=== PATIENT | female | born 1980 | race Caucasian/White ===

== ENCOUNTER 2017-05-16 10:09 | Emergency (ER) | payer OTHER ==
[~2017-05-16] VITALS: Ht 167.6 cm; Wt 100.0 kg
[2017-05-16 12:24] VITALS: BP 120/74
== END 2017-05-16 12:24 | disposition home or self-care (01) ==
LOC: ED 10:09
DX: M54.2 Cervicalgia (principal)
CPT/HCPCS: J1885

== ENCOUNTER 2018-01-26 14:10 | Emergency (ER) | payer OTHER ==
[~2018-01-26] VITALS: Ht 167.6 cm; Wt 97.1 kg
[2018-01-26 14:14] VITALS: BP 160/112; Ht 167.6 cm; Wt 97.1 kg
== END 2018-01-26 15:10 | disposition left against medical advice (07) ==
LOC: ED 14:10
DX: Z53.21 Procedure and treatment not carried out due to patient leaving prior to being seen by health care provider (principal)

== ENCOUNTER 2018-04-25 13:41 | Emergency (ER) | payer OTHER ==
[~2018-04-25] VITALS: Ht 167.6 cm; Wt 93.9 kg
[2018-04-25 14:04] VITALS: BP 130/91; Ht 167.6 cm; Wt 93.9 kg
== END 2018-04-25 14:54 | disposition home or self-care (01) ==
LOC: ED 13:41
DX: R51 Headache (principal); G82.20 Paraplegia, unspecified
CPT/HCPCS: J3030

== ENCOUNTER 2018-10-13 07:25 | Emergency (ER) | payer OTHER ==
[~2018-10-13] VITALS: Ht 167.6 cm; Wt 95.3 kg
[2018-10-13 07:34] VITALS: BP 127/79; Ht 167.6 cm; Wt 95.3 kg
== END 2018-10-13 08:55 | disposition home or self-care (01) ==
LOC: ED 07:25
DX: K52.9 Noninfective gastroenteritis and colitis, unspecified (principal); F41.9 Anxiety disorder, unspecified
CPT/HCPCS: Q0162

== ENCOUNTER 2019-02-10 10:29 | Emergency (ER) | payer OTHER ==
[~2019-02-10] VITALS: Ht 167.6 cm; Wt 97.6 kg
[2019-02-10 10:36] VITALS: Ht 167.6 cm; Wt 97.6 kg
[2019-02-10 11:06] VITALS: BP 134/97
== END 2019-02-10 11:06 | disposition home or self-care (01) ==
LOC: ED 10:29
DX: M25.512 Pain in left shoulder (principal); R20.2 Paresthesia of skin; F41.9 Anxiety disorder, unspecified

== ENCOUNTER 2019-08-18 20:58 | Emergency (ER) | payer OTHER ==
[~2019-08-18] VITALS: Ht 167.6 cm; Wt 98.4 kg
[2019-08-18 21:01] VITALS: Ht 167.6 cm; Wt 98.4 kg
[2019-08-18 22:19] VITALS: BP 147/104
== END 2019-08-18 22:19 | disposition home or self-care (01) ==
LOC: ED 20:58
DX: R30.0 Dysuria (principal); F41.9 Anxiety disorder, unspecified

== ENCOUNTER 2019-12-13 07:36 | Emergency (ER) | payer OTHER ==
[2019-12-13 08:08] LABS: BASOPHIL % 0.9 % (0-2); PLATELET COUNT 248 x10^3mcL (130-400); RED CELL DISTRIBUTION WIDTH 12.6 % (11.5-14.5)
[2019-12-13 08:12] LABS: CALCIUM 8.6 mg/dL (8.5-10.1); CARBON DIOXIDE 23.1 mmol/L (21-32); CHLORIDE SERUM 107 mmol/L (98-107); CREATININE SERUM 0.7 mg/dL (0.6-1.0); GFR1 > 60 mL/min; GLUCOSE SERUM 105 mg/dL (74-106); POTASSIUM SERUM 4.2 mmol/L (3.5-5.1); SODIUM SERUM 140 mmol/L (136-145)
[2019-12-13 08:20] LABS: ALBUMIN 3.4 g/dL (3.4-5.0); ALKALINE PHOSPHATASE 81 U/L (46-116); ALT/SGPT 25 U/L (14-59); AST/SGOT 13 U/L (15-37); BILIRUBIN TOTAL 0.3 mg/dL (0.20-1.00)
[2019-12-13 08:57] VITALS: BP 113/76
== END 2019-12-13 09:02 | disposition home or self-care (01) ==
LOC: ED 07:36
PROVIDERS: Emergency Medicine
DX: R07.89 Other chest pain (principal)
CPT/HCPCS: 36415

== ENCOUNTER 2020-03-03 11:47 | Emergency (ER) | payer OTHER ==
[~2020-03-03] VITALS: Ht 167.6 cm; Wt 97.1 kg
[2020-03-03 11:55] VITALS: Ht 167.6 cm; Wt 97.1 kg
[2020-03-03 12:49] LABS: CALCIUM 8.7 mg/dL (8.5-10.1); CARBON DIOXIDE 24.1 mmol/L (21-32); CHLORIDE SERUM 102 mmol/L (98-107); CREATININE SERUM 0.7 mg/dL (0.6-1.0); GFR1 > 60 mL/min; GLUCOSE SERUM 93 mg/dL (74-106); POTASSIUM SERUM 3.8 mmol/L (3.5-5.1); SODIUM SERUM 138 mmol/L (136-145)
[2020-03-03 12:53] LABS: ALBUMIN 3.6 g/dL (3.4-5.0); ALKALINE PHOSPHATASE 54 U/L (46-116); ALT/SGPT 24 U/L (14-59); AMYLASE 47 U/L (25-115); AST/SGOT 15 U/L (15-37); BILIRUBIN TOTAL 0.4 mg/dL (0.20-1.00); LIPASE 127 IU/L (73-393)
[2020-03-03 12:58] LABS: BASOPHIL % 1.3 % (0-2); PLATELET COUNT 225 x10^3mcL (130-400); RED CELL DISTRIBUTION WIDTH 12.6 % (11.5-14.5)
[2020-03-03 14:36] VITALS: BP 117/84
== END 2020-03-03 14:36 | disposition home or self-care (01) ==
LOC: ED 11:47
PROVIDERS: Emergency Medicine
DX: R10.12 Left upper quadrant pain (principal)
CPT/HCPCS: 36415; J1885

== ENCOUNTER 2020-05-17 16:44 | Emergency (ER) | payer OTHER ==
[~2020-05-17] VITALS: Ht 160 cm; Wt 72.6 kg
[2020-05-17 19:13] VITALS: Ht 160 cm; Wt 72.6 kg
[2020-05-17 19:15] VITALS: BP 132/83
== END 2020-05-17 19:15 | disposition home or self-care (01) ==
LOC: ED 16:44
DX: S81.812A Laceration without foreign body, left lower leg, initial encounter (principal); S20.211A Contusion of right front wall of thorax, initial encounter; W18.30XA Fall on same level, unspecified, initial encounter; Y93.89 Activity, other specified; Y92.89 Other specified places as the place of occurrence of the external cause; Y99.8 Other external cause status; Z20.828 Contact with and (suspected) exposure to other viral communicable diseases
CPT/HCPCS: Q0092; U0003-CS